=== PATIENT | female | born 1980 | race Two or more races ===

== ENCOUNTER → 2024-03-10 | Outpatient (CLI) | payer OTHER, SELFPAY ==
[2024-03-10 18:29] LABS: BASO % 0.2 % (0.0-1.0); HEMATOCRIT 33.9 % (36.0-47.0); HEMOGLOBIN 9.6 g/dl (12.0-15.5); LYMPH # 3.1 10^3/uL (1.5-5.0); LYMPH % 54.5 % (24.0-44.0); MEAN CORPUSCULAR HEMOGLOBIN 17.6 pg (27.0-33.0); MEAN CORPUSCULAR HGB CONC 28.3 g/dl (32.0-36.5); MEAN CORPUSCULAR VOLUME 62.3 fl (80.0-96.0); MONO # 0.4 10^3/uL (0.0-0.8); MONO % 6.2 % (2.0-8.0); NEUTROPHILS # 2.2 10^3/uL (1.5-8.5); NEUTROPHILS % 38.9 % (36.0-66.0); PLATELET COUNT, AUTOMATED 360 10^3/uL (150-450); RED BLOOD COUNT 5.44 10^6/uL (4.00-5.40); WHITE BLOOD COUNT 5.7 10^3/uL (4.0-10.0)
[2024-03-10 18:42] LABS: HEMOGLOBIN A1c 12.8 % (4.0-6.0)
[2024-03-10 19:06] LABS: ALBUMIN 3.4 G/DL (3.2-5.2); ALKALINE PHOSPHATASE 89 U/L (46-116); ALT/SGPT 14 U/L (7.0-40); AST/SGOT 13 U/L (<34); BILIRUBIN,TOTAL 0.6 MG/DL (0.3-1.2); BLOOD UREA NITROGEN 13 MG/DL (9-23); CARBON DIOXIDE LEVEL 26 MMOL/L (20-31); CHLORIDE LEVEL 99 MMOL/L (98-107); CHOLESTEROL LEVEL 184 MG/DL (<200); CHOLESTEROL RISK RATIO 2.47 (<5); CREATININE FOR GFR 0.44 MG/DL (0.55-1.30); GLOMERULAR FILTRATION RATE > 60.0 (>58); GLUCOSE, FASTING 243 MG/DL (60-100); HDL CHOLESTEROL 74.3 MG/DL (>40); LDL CHOLESTEROL 89.1 MG/DL (<100); NON-HDL-C 109.7 MG/DL; POTASSIUM SERUM 4.1 MMOL/L (3.5-5.1); SODIUM LEVEL 132 MMOL/L (136-145); TOTAL 25(OH) VITAMIN D 10.8 NG/ML (20.0-100.0); TOTAL PROTEIN 7.4 G/DL (5.7-8.2); TRIGLYCERIDES LEVEL 103 MG/DL (<150)
== END ==
LOC: M PLALAB 15:06
PROVIDERS: ATTEND Nurse Practitioner Family
DX: E11.9 Type 2 diabetes mellitus without complications (principal); Z13.220 Encounter for screening for lipoid disorders; E55.9 Vitamin D deficiency, unspecified

== ENCOUNTER → 2024-04-14 | Outpatient (CLI) | payer OTHER | LOC: M RAD 11:27 | PROVIDERS: ATTEND Nurse Practitioner Family | DX: M79.605 Pain in left leg (principal) ==

== ENCOUNTER → 2024-07-16 | Outpatient (CLI) | payer OTHER | LOC: M RAD 13:33 | PROVIDERS: ATTEND Physician Assistant | DX: M54.2 Cervicalgia (principal) ==

== ENCOUNTER → 2024-08-14 | Outpatient (CLI) | payer OTHER ==
[2024-08-14 12:53] LABS: C REACTIVE PROTEIN QUANTITATIV < 0.40 MG/DL (<1.0)
[2024-08-14 12:55] LABS: ALBUMIN 3.3 G/DL (3.2-5.2); ALKALINE PHOSPHATASE 89 U/L (46-116); ALT/SGPT 16 U/L (7.0-40); AST/SGOT < 8 U/L (<34); BILIRUBIN,TOTAL 0.5 MG/DL (0.3-1.2); BLOOD UREA NITROGEN 8 MG/DL (9-23); CALCIUM LEVEL 9.1 MG/DL (8.5-10.1); CARBON DIOXIDE LEVEL 28 MMOL/L (20-31); CHLORIDE LEVEL 106 MMOL/L (98-107); CREATININE FOR GFR 0.46 MG/DL (0.55-1.30); GLOMERULAR FILTRATION RATE > 60.0 (>58); GLUCOSE, FASTING 179 MG/DL (60-100); IRON (FE) 13 UG/DL (50-170); PERCENT SATURATION 3.2 % (13.2-45.0); POTASSIUM SERUM 4.1 MMOL/L (3.5-5.1); SODIUM LEVEL 137 MMOL/L (136-145); TOTAL IRON BINDING CAPACITY 408 UG/DL (250-425)
[2024-08-14 12:57] LABS: FREE T4 1.07 NG/DL (0.89-1.76); THYROID STIMULATING HORMONE 1.683 uIU/ML (0.55-4.78)
[2024-08-14 13:02] LABS: HEMOGLOBIN A1c 10.3 % (4.0-6.0)
[2024-08-14 13:13] LABS: HEMATOCRIT 31.9 % (36.0-47.0); LYMPH # 2.5 10^3/uL (1.5-5.0); LYMPH % 55.4 % (24.0-44.0); MEAN CORPUSCULAR HGB CONC 28.2 g/dl (32.0-36.5); MEAN CORPUSCULAR VOLUME 63.8 fl (80.0-96.0); MONO # 0.3 10^3/uL (0.0-0.8); MONO % 6.7 % (2.0-8.0); NEUTROPHILS # 1.7 10^3/uL (1.5-8.5); NEUTROPHILS % 37.9 % (36.0-66.0); PLATELET COUNT, AUTOMATED 295 10^3/uL (150-450); WHITE BLOOD COUNT 4.5 10^3/uL (4.0-10.0)
[2024-08-14 13:32] LABS: ERYTHROCYTE SEDIMENTATION RATE 52 mm/hr (0-20)
== END ==
LOC: M PLALAB 09:36
PROVIDERS: ATTEND Nurse Practitioner Family
DX: E11.65 Type 2 diabetes mellitus with hyperglycemia (principal); D64.9 Anemia, unspecified; R53.83 Other fatigue; R51.9 Headache, unspecified

== ENCOUNTER → 2024-11-30 | Outpatient (CLI) | payer OTHER ==
[2024-11-30 17:02] LABS: CHOLESTEROL LEVEL 177 MG/DL (<200); HDL CHOLESTEROL 58.9 MG/DL (>40); LDL CHOLESTEROL 95.3 MG/DL (<100); NON-HDL-C 118.1 MG/DL; TRIGLYCERIDES LEVEL 114 MG/DL (<150)
== END ==
LOC: M PLALAB 09:14
PROVIDERS: ATTEND Ophthalmology
DX: H15.003 Unspecified scleritis, bilateral (principal)

== ENCOUNTER → 2025-02-02 | Outpatient (CLI) | payer OTHER ==
[2025-02-02 12:32] LABS: HEMOGLOBIN A1c 6.6 % (4.0-6.0)
[2025-02-03 18:47] LABS: ANA SCREEN, IFA NEGATIVE (NEGATIVE)
== END ==
LOC: M PLALAB 08:59
PROVIDERS: ATTEND Psychiatry & Neurology Neurology
DX: R51.9 Headache, unspecified (principal)

== ENCOUNTER → 2025-03-26 | Outpatient (REF) | payer MEDICAID, OTHER ==
[2025-03-26 18:10] LABS: BASO % 0.2 % (0.0-1.0); HEMATOCRIT 36.9 % (36.0-47.0); HEMOGLOBIN 11.4 g/dl (12.0-15.5); LYMPH # 3.5 10^3/uL (1.5-5.0); LYMPH % 56.1 % (24.0-44.0); MEAN CORPUSCULAR HGB CONC 30.9 g/dl (32.0-36.5); MEAN CORPUSCULAR VOLUME 77.7 fl (80.0-96.0); MONO # 0.4 10^3/uL (0.0-0.8); MONO % 5.6 % (2.0-8.0); NEUTROPHILS # 2.4 10^3/uL (1.5-8.5); NEUTROPHILS % 37.8 % (36.0-66.0); PLATELET COUNT, AUTOMATED 300 10^3/uL (150-450); RED BLOOD COUNT 4.75 10^6/uL (4.00-5.40); WHITE BLOOD COUNT 6.3 10^3/uL (4.0-10.0)
[2025-03-26 18:12] LABS: HEMOGLOBIN A1c 8.8 % (4.0-6.0)
[2025-03-26 18:31] LABS: TOTAL IRON BINDING CAPACITY 389 UG/DL (250-425)
[2025-03-26 18:32] LABS: ALBUMIN 3.5 G/DL (3.2-5.2); ALKALINE PHOSPHATASE 80 U/L (35-104); ALT/SGPT 16 U/L (7.0-40); AST/SGOT 11 U/L (<34); BILIRUBIN,TOTAL 0.5 MG/DL (0.3-1.2); BLOOD UREA NITROGEN 12 MG/DL (9-23); CALCIUM LEVEL 9.2 MG/DL (8.5-10.1); CARBON DIOXIDE LEVEL 27 MMOL/L (20-31); CHLORIDE LEVEL 102 MMOL/L (98-107); CHOLESTEROL LEVEL 197 MG/DL (<200); CREATININE FOR GFR 0.55 MG/DL (0.55-1.30); GLOMERULAR FILTRATION RATE > 90.0 (>58); GLUCOSE, FASTING 145 MG/DL (60-100); HDL CHOLESTEROL 65.5 MG/DL (>40); IRON (FE) 137 UG/DL (50-170); LDL CHOLESTEROL 104.7 MG/DL (<100); NON-HDL-C 131.5 MG/DL; PERCENT SATURATION 35.2 % (13.2-45.0); POTASSIUM SERUM 4.5 MMOL/L (3.5-5.1); SODIUM LEVEL 135 MMOL/L (136-145); TOTAL PROTEIN 7.3 G/DL (5.7-8.2); TRIGLYCERIDES LEVEL 134 MG/DL (<150)
[2025-03-26 18:34] LABS: TOTAL 25(OH) VITAMIN D 16.1 NG/ML (20.0-100.0)
== END ==
LOC: M LABDRAWP 17:20
PROVIDERS: ATTEND Nurse Practitioner Family
DX: D64.9 Anemia, unspecified (principal); Z13.220 Encounter for screening for lipoid disorders; E55.9 Vitamin D deficiency, unspecified; E11.65 Type 2 diabetes mellitus with hyperglycemia

== ENCOUNTER → 2025-06-29 | Outpatient (REF) | payer MEDICAID, OTHER ==
[2025-07-01 14:22] LABS: HPV APTIMA Not Detected (Not Detected)
== END ==
LOC: M SFHCPLAZ 13:12
PROVIDERS: ATTEND Nurse Practitioner Family
DX: Z12.4 Encounter for screening for malignant neoplasm of cervix (principal)

== ENCOUNTER → 2025-07-19 | Outpatient (CLI) | payer OTHER | LOC: M WHC 14:21 | PROVIDERS: ATTEND Nurse Practitioner Family | DX: N63.12 Unspecified lump in the right breast, upper inner quadrant (principal) ==

== ENCOUNTER → 2025-09-06 | Outpatient (CLI) | payer OTHER ==
[2025-09-06 13:38] LABS: BASO # 0.0 10^3/uL (0.0-0.2); BASO % 0.0 % (0.0-1.0); EOS # 0.0 10^3/uL (0.0-0.5); EOS % 0.0 % (0.0-3.0); LYMPH # 2.3 10^3/uL (1.5-5.0); LYMPH % 53.1 % (24.0-44.0); MONO # 0.2 10^3/uL (0.0-0.8); MONO % 5.4 % (2.0-8.0); NEUTROPHILS # 1.8 10^3/uL (1.5-8.5); NEUTROPHILS % 41.3 % (36.0-66.0); PLATELET COUNT, AUTOMATED 250 10^3/uL (150-450)
[2025-09-06 13:41] LABS: IRON (FE) 37 UG/DL (50-170)
[2025-09-06 13:42] LABS: ALT/SGPT 13 U/L (7.0-40); AST/SGOT 12 U/L (<34); CALCIUM LEVEL 8.8 MG/DL (8.5-10.1); CARBON DIOXIDE LEVEL 27 MMOL/L (20-31); CHLORIDE LEVEL 103 MMOL/L (98-107); CHOLESTEROL LEVEL 183 MG/DL (<200); CHOLESTEROL RISK RATIO 2.92 (<5); CREATININE FOR GFR 0.46 MG/DL (0.55-1.30); GLOMERULAR FILTRATION RATE > 90.0 (>58); LDL CHOLESTEROL 98.9 MG/DL (<100); NON-HDL-C 120.5 MG/DL; POTASSIUM SERUM 4.2 MMOL/L (3.5-5.1); SODIUM LEVEL 138 MMOL/L (136-145); TRIGLYCERIDES LEVEL 108 MG/DL (<150)
[2025-09-06 13:45] LABS: FREE T4 1.17 NG/DL (0.89-1.76)
[2025-09-06 13:46] LABS: TOTAL 25(OH) VITAMIN D 36.0 NG/ML (20.0-100.0); VITAMIN B12 LEVEL 160 PG/ML (211-911)
[2025-09-06 14:05] LABS: CREATININE, URINE 128.5 MG/DL; MALB URINE SIEMENS < 3.0 MG/L
[2025-09-06 14:34] LABS: ESTIMATED AVERAGE GLUCOSE 180.0 MG/DL (60-110)
== END ==
LOC: M PLALAB 09:51
PROVIDERS: ATTEND Nurse Practitioner Family
DX: D64.9 Anemia, unspecified (principal); E11.65 Type 2 diabetes mellitus with hyperglycemia; E55.9 Vitamin D deficiency, unspecified; E78.2 Mixed hyperlipidemia; E53.8 Deficiency of other specified B group vitamins; R53.83 Other fatigue

== ENCOUNTER → 2025-11-03 | Outpatient (CLI) | payer OTHER ==
[2025-11-03 14:11] LABS: CHOLESTEROL LEVEL 191.0 MG/DL (<200); CHOLESTEROL RISK RATIO 3.19 (<5); LDL CHOLESTEROL 111.1 MG/DL (<100); NON-HDL-C 131.3 MG/DL; TRIGLYCERIDES LEVEL 101.0 MG/DL (<150)
[2025-11-03 14:51] LABS: ESTIMATED AVERAGE GLUCOSE 189.0 MG/DL (60-110)
== END ==
LOC: M PLALAB 11:01
PROVIDERS: ATTEND Ophthalmology
DX: H34.11 Central retinal artery occlusion, right eye (principal)